=== PATIENT | female | born 1960 | race Caucasian/White ===

== ENCOUNTER 2020-08-01 14:35 | Outpatient (CLI) | payer BC, SELFPAY ==
--- NOTE | 2020-08-01 14:47 | USCV_ITS ---
White, Kim Age: 59 Gender: F : 1960 Exam Date: 08/01/2020 14:47 Ordering Phys: Abigail Montes De Oca CHANGE PERSON CHANGE PERSON Technologist: Gina Camacho [place] [facility] [place] Indication: VENOUS STASIS ULCER WITH EDEMA HISTORY: Lower extremity edema. PROCEDURES: Venous duplex imaging was performed in bilateral lower extremities. The following venous structures were evaluated: common femoral vein, profunda vein, proximal portion of the greater saphenous vein, superficial femoral vein, and the popliteal vein. In addition, the posterior tibial and peroneal trunk were evaluated. Serial compression, augmentation maneuvers, and spectral Doppler flow evaluation were performed. FINDINGS: Normal 2-D Doppler and augmentation and compressibility throughout the lower extremity venous structures. Additional imaging through the proximal calf veins also reveals no thrombus. Limited evaluation of the greater saphenous vein is patent with no thrombus.. CONCLUSIONS No DVT bilateral lower extremities. Dr. Linda Poole DO Edited by: CV Help Desk Associate (Electronically Signed) Final Date: 01 August 2020 15:45 Amended: 02 August 2020 12:30 C
== END 2020-08-01 14:36 | disposition home or self-care (01) ==
PROVIDERS: PCP Family Medicine; Visit Provider Registered Nurse
DX: R60.0 Localized edema (principal)
CPT/HCPCS: 93970

== ENCOUNTER 2020-08-02 09:16 | Outpatient (CLI) | payer BC, SELFPAY ==
--- NOTE | 2020-08-02 09:25 | USCV_ITS ---
Kmi Radford Age: 59 Gender: F : 1960 Exam Date: 08/02/2020 09:23 Ordering Phys: Carito Cedillo Technologist: Cassandra Michelle Exam Location: [facility] – [place] Indication: DECREASED PULSES Risk Factors: Previous Vascular Surgery: None RIGHT LEFT BP: 92.00 / 54.00 BP: 108.0/ 74.00 0 Waveform Velocity (cm/s) Velocity (cm/s) Waveform Biphasic 108.0 Iliac Prox 80.4 Triphasic Biphasic 105.6 Iliac Mid 79.5 Triphasic Biphasic 101.0 Iliac Distal 73.8 Biphasic Biphasic 81.6 BRUSH HAND 66.5 Biphasic Biphasic 69.8 SFA Prox 74.2 Biphasic Biphasic 77.3 SFA Mid 78.8 Biphasic Biphasic 60.5 SFA Dist 51.0 Biphasic Biphasic 43.2 POP 39.3 Biphasic Biphasic 30.9 TEA TREE FARMER 32.4 Biphasic Biphasic 43.2 DPA 53.6 Biphasic MICHELLE 1.1 0.9 FINDINGS RT TEA TREE FARMER 90 RT DPA 100 LT TEA TREE FARMER 120 LT DPA 110 CONCLUSIONS 1. Slightly diminished resting MICHELLE on the right side, suggestive of mild peripheral artery disease 2. Normal resting MICHELLE on the left side 3. Abnormal arterial Doppler waveforms, may suggest diffuse arterial sclerosis Dr Bladimir Torrez MD [facility] (Electronically Signed) Final Date: 02 August 2020 19:55 S
== END 2020-08-02 09:17 | disposition home or self-care (01) ==
PROVIDERS: PCP Family Medicine; Visit Provider Registered Nurse
DX: R09.89 Other specified symptoms and signs involving the circulatory and respiratory systems (principal); M79.671 Pain in right foot; M79.672 Pain in left foot
CPT/HCPCS: 93925

== ENCOUNTER → 2023-03-24 13:19 | Outpatient (BNVA) | payer BC, SELFPAY | PROVIDERS: PCP Family Medicine; Visit Provider Podiatrist Foot & Ankle Surgery | DX: M76.821 Posterior tibial tendinitis, right leg; M21.41 Flat foot [pes planus] (acquired), right foot; M21.42 Flat foot [pes planus] (acquired), left foot; M66.871 Spontaneous rupture of other tendons, right ankle and foot; B35.3 Tinea pedis | CPT/HCPCS: 73630 ==

== ENCOUNTER 2023-03-24 14:12 | Outpatient (CLI) | payer BC, SELFPAY | END 2023-03-24 14:13 | disposition home or self-care (01) | LOC: SPT 14:13 | PROVIDERS: PCP Family Medicine; Visit Provider Podiatrist Foot & Ankle Surgery | DX: Z46.89 Encounter for fitting and adjustment of other specified devices (principal); M76.821 Posterior tibial tendinitis, right leg; M66.871 Spontaneous rupture of other tendons, right ankle and foot; M21.40 Flat foot [pes planus] (acquired), unspecified foot | CPT/HCPCS: 97760; L4361 ==

== ENCOUNTER → 2023-10-13 13:35 | Outpatient (BNVA) | payer MEDICARE, OTHER, SELFPAY | PROVIDERS: PCP Family Medicine; Visit Provider Podiatrist Foot & Ankle Surgery | DX: M76.821 Posterior tibial tendinitis, right leg (principal); M66.871 Spontaneous rupture of other tendons, right ankle and foot | CPT/HCPCS: 73630; 99213 ==

== ENCOUNTER 2023-10-22 06:00 | Outpatient (RCR) | payer MEDICARE, OTHER, SELFPAY | END 2023-11-09 23:59 | disposition home or self-care (01) | LOC: MPT 06:00 | PROVIDERS: Visit Provider Podiatrist Foot & Ankle Surgery | DX: M25.571 Pain in right ankle and joints of right foot (principal) | CPT/HCPCS: 97033; 97110; 97140; 97162 ==

== ENCOUNTER 2023-11-10 06:00 | Outpatient (RCR) | payer MEDICARE, OTHER, SELFPAY | END 2023-12-09 23:59 | disposition home or self-care (01) | LOC: MPT 06:00 | PROVIDERS: Visit Provider Podiatrist Foot & Ankle Surgery | DX: M25.571 Pain in right ankle and joints of right foot (principal) | CPT/HCPCS: 97110; 97140 ==

== ENCOUNTER → 2023-11-24 13:24 | Outpatient (BNVA) | payer MEDICARE, OTHER, SELFPAY | PROVIDERS: Visit Provider Podiatrist Foot & Ankle Surgery | DX: M76.821 Posterior tibial tendinitis, right leg (principal); M66.871 Spontaneous rupture of other tendons, right ankle and foot | CPT/HCPCS: 99213 ==

== ENCOUNTER 2023-12-10 06:00 | Outpatient (RCR) | payer MEDICARE, OTHER, SELFPAY | END 2024-01-09 23:59 | disposition home or self-care (01) | LOC: MPT 06:00 | PROVIDERS: Visit Provider Podiatrist Foot & Ankle Surgery | DX: M25.571 Pain in right ankle and joints of right foot (principal) | CPT/HCPCS: 97110; 97140 ==

== ENCOUNTER 2024-01-10 06:00 | Outpatient (RCR) | payer MEDICARE, OTHER, SELFPAY | END 2024-01-19 23:59 | disposition home or self-care (01) | LOC: MPT 06:00 | PROVIDERS: Visit Provider Podiatrist Foot & Ankle Surgery | DX: M25.571 Pain in right ankle and joints of right foot (principal) | CPT/HCPCS: 97110 ==

== ENCOUNTER → 2024-02-02 09:32 | Outpatient (BNVA) | payer MEDICARE, OTHER, SELFPAY | PROVIDERS: PCP Family Medicine; Visit Provider Podiatrist Foot & Ankle Surgery | DX: M76.821 Posterior tibial tendinitis, right leg (principal); M66.871 Spontaneous rupture of other tendons, right ankle and foot | CPT/HCPCS: 99213 ==

== ENCOUNTER 2024-04-06 09:07 | Outpatient (CLI) | payer MEDICARE, OTHER, SELFPAY ==
--- NOTE | 2024-04-06 09:00 | MM_ITS ---
WS: [id number] BILATERAL 3D TOMOSYNTHESIS DIGITAL SCREENING MAMMOGRAPHY WITH CAD CLINICAL INFORMATION: SCREENING HISTORY: Screening mammogram. No current complaints. COMPARISON: 2020 TECHNIQUE: Bilateral CC and MLO views. FINDINGS: Scattered fibroglandular densities bilaterally. No suspicious focal mass, asymmetry, calcifications, or architectural distortion. No evidence of malignancy. Lucent centered calcification LEFT breast. MM/[place] [id number] IMPRESSION: BI-RADS: 2-Benign FOLLOW UP: 1 Year Follow-up Recommend return to annual screening mammography.
== END 2024-04-06 09:08 | disposition home or self-care (01) ==
LOC: MOBLMAM 09:12
PROVIDERS: PCP Family Medicine; Visit Provider Family Medicine
DX: Z12.31 Encounter for screening mammogram for malignant neoplasm of breast (principal); R92.323 Mammographic fibroglandular density, bilateral breasts; R92.1 Mammographic calcification found on diagnostic imaging of breast
CPT/HCPCS: 77063; 77067

== ENCOUNTER → 2024-04-09 08:31 | Outpatient (BNVA) | payer MEDICARE, OTHER, SELFPAY | PROVIDERS: PCP Family Medicine; Referring Provider Family Medicine; Visit Provider Student in an Organized Health Care Education/Training Program | DX: Z12.11 Encounter for screening for malignant neoplasm of colon (principal) | CPT/HCPCS: 99024; 99204 ==

== ENCOUNTER → 2024-05-18 07:51 | Outpatient (BNVA) | payer MEDICARE, OTHER, SELFPAY | PROVIDERS: PCP Family Medicine; Visit Provider Nurse Practitioner Family | DX: L82.0 Inflamed seborrheic keratosis (principal); B35.3 Tinea pedis; L82.1 Other seborrheic keratosis; L72.0 Epidermal cyst; D22.39 Melanocytic nevi of other parts of face; L81.4 Other melanin hyperpigmentation | CPT/HCPCS: 17110; 99204 ==

== ENCOUNTER 2024-06-21 07:43 | Day surgery (SDC) | payer MEDICARE, OTHER, SELFPAY ==
[2024-06-21 08:07] VITALS: BMI 23.8
[2024-06-21 08:11] VITALS: BP 122/79; PULSE 66; RESP 17; TEMP 36.6; O2SAT 98
[2024-06-21] MEDS: sodium chloride 0.9% 1,000 ML 30 ML IV (08:22)
--- NOTE | 2024-06-21 08:26 | ANES.PREANE2 ---
Pre-Anesthetic Assessment Height/Weight: Height 1.55 m Weight 57.153 kg Temp Pulse Resp BP Pulse Ox O2 Del Method 97.9 F 66 17 122/79 98 Room Air 06/21/24 08:11 06/21/24 08:11 06/21/24 08:11 06/21/24 08:11 06/21/24 08:11 06/21/24 08:11 Preop Diagnosis: screening Operation Date: 06/21/24 08:45 Proposed Procedures p [id number], Z12.11(Not Applicable) - Trent Coreas MD Familial anesthetic complications: none Was Beta Sajan taken within 24 hours: Yes Was Clonidine taken within 24 hours: N/A Last intake: Intake Last Liquid Date 06/20/24 Last Liquid Time 22:00 Last Solid Date 06/19/24 Last Solid Time 17:30 Social Tobacco (0.5 ppd) and No alcohol Exam alert and oriented x 3 Airway Submandibular: within normal limits Cervical ROM: within normal limits Mallampati: Class III Dentition: full History/ROS No significant history except as noted Pulmonary Chronic Obstructive Pulmonary Disease CV/HEM Hypertension None reported Hepatic None reported GI None reported Metabolic Hyperlipidemia [facility] [place] None reported Neuropsych Seizure (as a child only- not on antiseizure meds) Anesthetic Plan ASA status: 3 Anesthesia: Anesthesia Evaluation and MAC Medications/Allergies Home Medications Medication Instructions Recorded Confirmed Last Taken Type cam boot- right foot #1 ea 03/24/23 04/09/24 06/16/24 Rx gabapentin 100 mg capsule 300 mg PO DAILY 03/24/23 06/21/24 06/20/24 History metoprolol tartrate 50 mg tablet 50 mg PO BID 03/24/23 06/21/24 06/21/24 History simvastatin 10 mg tablet 10 mg PO DAILY 03/24/23 06/21/24 06/20/24 History spironolactone 50 mg tablet 50 mg PO DAILY 03/24/23 06/21/24 06/20/24 History Articulating AFO to the Right #1 ea 03/31/23 04/09/24 06/16/24 Rx acetaminophen 500 mg tablet 500 mg PO Q6H PRN Panic Attack(S) 06/16/24 06/21/24 06/19/24 History meloxicam 15 mg tablet 15 mg PO DAILY PRN Pain (Scale 06/16/24 06/21/24 2 Months Ago History Score 1-3) ~04/21/24 Allergies Allergy/AdvReac Type Severity Reaction Status Date / Time doxycycline Allergy Mild stomach Verified 06/16/24 10:06 Penicillins Allergy Mild hives Verified 06/16/24 10:06 Sulfa (Sulfonamide Allergy dry skin Verified 06/16/24 10:06 Antibiotics) Current Medications Generic Name Dose Route Start Last Admin Trade Name Freq PRN Reason Stop Dose Admin Sodium Chloride 1,000 mls @ 30 mls/hr 06/21/24 08:15 06/21/24 08:22 Sodium Chloride 0.9% IV 30 mls/hr .Q24H JENNIFER Administration PFSH Anesthesia Family History (Updated 04/09/24 @ 09:01 by LYN Catherine) Grandmother Cancer stomach Mother Breast cancer Social History (Updated 04/09/24 @ 08:53 by LYN Catherine) Smoking and tobacco/nicotine status: current every day tobacco/nicotine user cigarettes Data Anesthesia Cardiac Studies: No Data to Display
--- NOTE | 2024-06-21 09:04 | W.PM.OPSFHP ---
Same Day Surgery H&P Indication for Procedure/HPI DATE OF PROCEDURE: June 21, 2024 CHIEF COMPLAINT/INDICATIONFOR SURGICAL PROCEDURE: screening colonscopy PREOP DIAGNOSIS: screening PLANNED PROCEDURE: Operation Date: 06/21/24 08:45 Proposed Procedures p [id number], Z12.11(Not Applicable) - Trent Coreas MD Medications/Allergies* Home Medications Medication Instructions Recorded Confirmed Type gabapentin 100 mg capsule 300 mg PO DAILY 03/24/23 06/21/24 History metoprolol tartrate 50 mg tablet 50 mg PO BID 03/24/23 06/21/24 History simvastatin 10 mg tablet 10 mg PO DAILY 03/24/23 06/21/24 History spironolactone 50 mg tablet 50 mg PO DAILY 03/24/23 06/21/24 History acetaminophen 500 mg tablet 500 mg PO Q6H PRN Panic Attack(S) 06/16/24 06/21/24 History meloxicam 15 mg tablet 15 mg PO DAILY PRN Pain (Scale 06/16/24 06/21/24 History Score 1-3) Allergies/Adverse Reactions Allergy/AdvReac Type Severity Reaction Status Date / Time doxycycline Allergy Mild stomach Verified 06/16/24 10:06 Penicillins Allergy Mild hives Verified 06/16/24 10:06 Sulfa (Sulfonamide Allergy dry skin Verified 06/16/24 10:06 Antibiotics) Current Medications: Generic Name Dose Route Start Last Admin Trade Name Freq PRN Reason Stop Dose Admin Sodium Chloride 1,000 mls @ 30 mls/hr 06/21/24 08:15 06/21/24 08:22 Sodium Chloride 0.9% IV 30 mls/hr .Q24H JENNIFER Administration Pertinent History/Comorbid Conditions* Family History (Updated 04/09/24 @ 09:01 by LYN Catherine) Breast cancer Mother Cancer Grandmother stomach Social History Smoking and tobacco/nicotine status: current every day tobacco/nicotine user cigarettes Pertinent Exam Findings alert, oriented x 3, clear to auscultation bilaterally, regular rate & rhythm and procedure specific exam findings Abdomen soft, NT, ND Recommendations Surgery/Procedure today Coding Level of Care Code Acute Code for Chg Fwd
[2024-06-21 09:22] VITALS: BP 106/66; PULSE 61; RESP 17; TEMP 36.1; O2SAT 97
--- NOTE | 2024-06-21 09:25 | ANE.PACU2 ---
Inpatient post-anesthesia follow up: Airway intact: Yes Vital signs: Temperature 97.9 F Pulse Rate 66 Respiratory Rate 17 Blood Pressure 122/79 Pulse Oximetry 98 Oxygen Delivery Me thod Room Air Oxygen Flow Rate Fraction of Inspir ed Oxygen Hydration adequate: Yes Nausea and vomiting: No Pain level: 1 Mental status: Baseline
[2024-06-21 09:27] VITALS: BP 118/68; PULSE 62; RESP 20; O2SAT 97
[2024-06-21 09:37] VITALS: BP 121/74; PULSE 67; RESP 20; O2SAT 100
== END 2024-06-21 09:58 | disposition home or self-care (01) ==
PROVIDERS: PCP Family Medicine; Visit Provider Student in an Organized Health Care Education/Training Program
PROC: 0DJD8ZZ Inspection of Lower Intestinal Tract, Via Natural or Artificial Opening Endoscopic (ICD-10-PCS; CPT 45378; principal; 2024-06-21 08:45)
DX: Z12.11 Encounter for screening for malignant neoplasm of colon (principal); F17.210 Nicotine dependence, cigarettes, uncomplicated; K57.30 Diverticulosis of large intestine without perforation or abscess without bleeding; K64.4 Residual hemorrhoidal skin tags; J44.9 Chronic obstructive pulmonary disease, unspecified; I10 Essential (primary) hypertension; E78.5 Hyperlipidemia, unspecified
CPT/HCPCS: G0121; J2704; J7030

== ENCOUNTER 2025-04-14 10:42 | Outpatient (CLI) | payer MEDICARE, OTHER, SELFPAY ==
--- NOTE | 2025-04-14 10:40 | MM_ITS ---
WS: [id number] BILATERAL SCREENING DIGITAL TOMOSYNTHESIS MAMMOGRAM WITH CAD HISTORY: SCREENING COMPARISON: 04/06/2024, 08/06/2021 Bilateral CC and MLO views with tomosynthesis and synthetic mammography submitted. Computer aided detection analyzed. Breast composition: There are scattered areas of fibroglandular density. No suspicious masses, microcalcifications or architectural distortion. Benign calcifications LEFT breast. MM/MM scr BI tomosynthesis [id number] IMPRESSION: BI-RADS: 2 - Benign. FOLLOW UP: 1 Year Follow-up
== END 2025-04-14 10:43 | disposition home or self-care (01) ==
LOC: MOBLMAM 10:44
PROVIDERS: PCP Family Medicine; Visit Provider Family Medicine
DX: Z12.31 Encounter for screening mammogram for malignant neoplasm of breast (principal); R92.323 Mammographic fibroglandular density, bilateral breasts; R92.1 Mammographic calcification found on diagnostic imaging of breast
CPT/HCPCS: 77063; 77067

== ENCOUNTER → 2025-05-26 08:49 | Outpatient (BNVA) | payer MEDICARE, OTHER, SELFPAY | PROVIDERS: PCP Family Medicine; Visit Provider Nurse Practitioner Family | DX: L82.1 Other seborrheic keratosis (principal); L72.0 Epidermal cyst; D22.39 Melanocytic nevi of other parts of face; L81.4 Other melanin hyperpigmentation; L82.0 Inflamed seborrheic keratosis; R20.8 Other disturbances of skin sensation; L53.8 Other specified erythematous conditions | CPT/HCPCS: 17110; 99213 ==